=== PATIENT | female | born 1985 | race Caucasian/White ===

== ENCOUNTER 2016-11-11 11:50 | Emergency (ER) | payer MEDICAID, OTHER ==
[~2016-11-11] VITALS: Ht 152.4 cm; Wt 65.5 kg
[2016-11-11 11:51] VITALS: Ht 152.4 cm; Wt 65.5 kg
--- NOTE | 2016-11-11 12:48 | ERD ---
ER Documentation Chief Complaint Date/Time DATE: 11/11/16 TIME: 12:31 Chief Complaint Complains of SOB Hx of Asthma HPI 31-year-old female is complaining of shortness breath. Patient stated that she has cough and runny nose for last 2 weeks. Patient reports feeling of cannot catch her breath when she is coughing. States that she has green or dark brown colored sputum. She reports history of asthma. She has used albuterol inhaler 30 times since arrival to the ED today. States that that helps a little bit. Patient has history of smoking half pack a day, smoking speed, and daily heroin injections. She also reports 3 abscesses, one in her left upper arm, 2 in her each buttock. Denies fever or chills. ROS All systems reviewed and are negative except as per history of present illness. Allergies Allergies: Coded Allergies: No Known Drug Allergies (Verified Allergy, Unknown, 10/10/09) PMhx/Soc Hx Tobacco Use: Yes Physical Exam Vitals Vital Signs Date Time Temp Pulse Resp B/P Pulse Ox O2 Delivery O2 Flow Rate FiO2 11/11/16 11:51 98.2 76 20 135/81 98 Physical Exam General: Well-developed, well-nourished, conscious and coherent, in no distress. Exam is limited due to patient's noncooperation. Skin: Warm and dry. Several bruises observed. A 4 x 6 cm area of fluctuant , erythematous, tender lesion noted on the left upper arm. Patient refused to allow me to examine her abscesses on her buttocks. Head: Normocephalic without evidence of trauma Eyes: Sclera and conjunctivae normal; pupils equal, round, and reactive to light; extraocular movements are intact Ears: Canals are patent. Tympanic membranes are clear Nose/Face: Without rhinorrhea Mouth/throat: Mucous membranes are moist. Posterior pharynx clear without erythema or exudates Neck: Supple without meningismus or adenopathy. Carotids are equal. Trachea midline. No bruits or JVD Chest: Normal AP diameter. Good expansion without retractions. Nontender. Lungs are clear to auscultate bilaterally with good tidal volume. Anterior chest wall tender to palpation. Heart: Regular rate and rhythm. No murmur, rub, or gallops heard Extremities: Full range of motion. Good strength bilaterally. No clubbing, cyanosis, or edema. Peripheral pulses are intact. Sensation intact Neuro: Alert and oriented 4, GCS 15. Cranial nerves grossly intact. Motor and sensory exams nonfocal. Moves all extremities. Speech clear. Gait normal Procedures/MDM 31-year-old female with history of multi-substance abuse presented to ED complaining of shortness of breath. She does not have any signs of respiratory distress, her O2 sat is 98% on arrival, her lungs are clear to auscultation. I doubt that she has asthma exacerbation, pneumonia, pneumothorax, or PE. I suspect that her sense of shortness of breath is due to anxiety. Patient reports several abscesses secondary to heroin injections. When I advised patient that her abscess on the arm needs incision and drainage. Patient became agitated. She refused to allow me to examine her buttocks. Patient yells "you are not going to touch me. I have my rights. I know what I want. You going to give me what I want. I want a shot and antibiotics." I attempted to educate patient that antibiotics is not going to help with abscess. Patient refused to listen. "I do not want to hear you lecture me". I agreed to provide her with prescription of oral antibiotics. However, patient eloped before I was able to complete discharge instructions. Departure Diagnosis: Primary Impression: Cough Additional Impressions: Substance abuse Abscess Tobacco abuse Condition: Stable KAT ROD NP Nov 11, 2016 12:41
== END 2016-11-11 14:09 | disposition left against medical advice (07) ==
LOC: FTE 11:50
DX: R05 Cough (principal); F11.10 Opioid abuse, uncomplicated; L02.414 Cutaneous abscess of left upper limb; L02.31 Cutaneous abscess of buttock; F17.210 Nicotine dependence, cigarettes, uncomplicated; J45.909 Unspecified asthma, uncomplicated; R40.2412 Glasgow coma scale score 13-15, at arrival to emergency department
CPT/HCPCS: 99282

== ENCOUNTER 2016-12-11 03:31 | Emergency (ER) | payer OTHER ==
[~2016-12-11] VITALS: Ht 167.6 cm; Wt 67.0 kg
[2016-12-11 03:40] VITALS: Ht 167.6 cm; Wt 67.0 kg
--- NOTE | 2016-12-11 04:35 | ERA ---
ER Documentation Chief Complaint Date/Time DATE: 12/11/16 TIME: 04:32 Chief Complaint abscess left arm HPI Obese 31-year-old female with history of IV drug use presenting with chief complaint of abscess on the left upper extremity. Patient has had these abscesses before and the upper extremities. Patient does state that she has been having fever or chills lately. Denies any loss of motion, change in sensation or excessive pain outside of the area of the abscess. Denies shortness of breath or chest pain. No environmental triggers aside from IV drug use is able to be identified. Nursing notes have been reviewed. ROS All systems reviewed and are negative except as per history of present illness. Medications Home Meds Active Scripts Cephalexin* (Keflex*) 500 Mg Capsule, 500 MG PO QID for 5 Days, CAP Prov:MICHAEL GALLOWAY PA-C 12/11/16 Sulfamethoxazole/Trimethoprim* (Bactrim Ds* Tablet) 1 Each Tablet, 1 TAB PO BID , #14 TAB Prov:MICHAEL GALLOWAY PA-C 12/11/16 Acetaminophen* (Tylenol*) 325 Mg Tablet, 2 TAB PO Q8 Y for PAIN AND OR ELEVATED TEMP, #20 TAB Prov:MICHAEL GALLOWAY PA-C 12/11/16 Allergies Allergies: Coded Allergies: No Known Drug Allergies (Verified Allergy, Unknown, 10/10/09) PMhx/Soc Medical and Surgical Hx: pt denies Medical Hx, pt denies Surgical Hx History of Surgery: No Anesthesia Reaction: No Hx Neurological Disorder: No Hx Respiratory Disorders: No Hx Cardiac Disorders: No Hx Psychiatric Problems: No Hx Miscellaneous Medical Probl: No Hx Alcohol Use: No Hx Substance Use: Yes Hx Tobacco Use: Yes Smoking Status: Current every day smoker Physical Exam Vitals Vital Signs Date Time Temp Pulse Resp B/P Pulse Ox O2 Delivery O2 Flow Rate FiO2 12/11/16 03:40 97.8 115 20 130/73 100 Physical Exam Const: Healthy-appearing. Well-nourished. Well-developed. No acute distress. Skin: 15 cm erythematous area just below the deltoid patch area between the triceps and biceps on the left upper extremity. Small area of fluctuance, the rest of the area is nonfluctuant. No induration outside of the erythematous area. No warmth to touch. No discharge. Ext: No edema or palpable cord. Normal movement of all extremities grossly observed. Neur: Awake, alert and oriented x3. Neurovascularly intact bilaterally. Oral: No oral edema visualized. Mucous membranes moist and pink. Head: Normocephalic, Atraumatic. Eyes: Non-injected; No discharge. EOMI and CEZAR bilaterally. Ears: Normal External Ears, EACs clear, TM normal bilaterally without erythema. Nose: Normal external nose; no discharge, or sinus tenderness. Neck: No cervical lymphadenopathy, masses or goiter palpated. ~ No meningismus. Pulm: Good air movement in upper and lower respiratory tracts. No dyspnea, stridor, tripoding or drooling. Clear to auscultation bilaterally. Cardio: Regular rate and rhythm; No murmurs, gallops or rubs auscultated. No JVD grossly observed. No cyanosis. Capillary refill less than 2 seconds. Abd: Soft, non tender, non distended. No guarding, masses. Normal bowel sounds. MS: Normal motor strength, normal tone with gross examination. Back: No midline, flank or CVA tenderness. Psych: Normal Mood and Affect. Result Diagram: 12/11/16 0530 12/11/16 0530 Results 24 hrs Laboratory Tests Test 12/11/16 05:30 12/11/16 05:52 White Blood Count 11.710^3/ul Red Blood Count 4.2610^6/ul Hemoglobin 12.2g/dl Hematocrit 38.0% Mean Corpuscular Volume 89.2fl Mean Corpuscular Hemoglobin 28.6pg Mean Corpuscular Hemoglobin Concent 32.1g/dl Red Cell Distribution Width 15.8% Platelet Count 63167^3/UL Mean Platelet Volume 9.2fl Neutrophils % 66.8% Lymphocytes % 24.5% Monocytes % 6.4% Eosinophils % 1.5% Basophils % 0.3% Nucleated Red Blood Cells % 0.0/100WBC Neutrophils # 7.810^3/ul Lymphocytes # 2.910^3/ul Monocytes # 0.810^3/ul Eosinophils # 0.210^3/ul Basophils # 0.010^3/ul Nucleated Red Blood Cells # 0.010^3/ul Sodium Level 142mmol/L Potassium Level 3.8mmol/L Chloride Level 103mmol/L Carbon Dioxide Level 24mmol/L Anion Gap 19 Blood Urea Nitrogen 16mg/dl Creatinine 0.67mg/dl Glucose Level 87mg/dl Calcium Level 9.1mg/dl Total Bilirubin 0.1mg/dl Direct Bilirubin 0.00mg/dl Indirect Bilirubin 0.1mg/dl Aspartate Amino Transf (AST/SGOT) 36IU/L Alanine Aminotransferase (ALT/SGPT) 51IU/L Alkaline Phosphatase 105IU/L Total Protein 8.4g/dl Albumin 3.9g/dl Globulin 4.50g/dl Albumin/Globulin Ratio 0.86 Urine Color YELLOW Urine Clarity SLIGHTLY CLOUDY Urine pH 5.0 Urine Specific [place] 1.026 Urine Ketones NEGATIVEmg/dL Urine Nitrite NEGATIVEmg/dL Urine Bilirubin NEGATIVEmg/dL Urine Urobilinogen 1+mg/dL Urine Leukocyte Esterase 2+Margot/ul Urine Microscopic RBC 7/HPF Urine Microscopic WBC 49/HPF Urine Squamous Epithelial Cells FEW/HPF Urine Bacteria FEW/HPF Urine Mucus MANY/HPF Urine Hemoglobin 1+mg/dL Urine Glucose NEGATIVEmg/dL Urine Total Protein NEGATIVEmg/dl Current Medications Medications (Trade) Dose Ordered Sig/Mani Route PRN Reason Start Time Stop Time Status Last Admin Dose Admin Ketorolac Tromethamine (Toradol) 60 mg ONCE STAT IM 12/11/16 06:35 12/11/16 06:36 DC Procedures/MDM 31-year-old female with a history of IV drug use and abscesses presents with a chief complaints of another abscess on the left upper extremity. Patient gave a history of possible fever and chills, thus CBC and other basic labs were ordered. The results were as follows. CBC: Unremarkable CMP: Unremarkable Urinalysis: Positive leukocyte esterase, mucus, few white blood cells. Abscess was incised and drained. 12 mL of lidocaine with epi was used to anesthetize the area. 15 is 20 mL of purulent fluid was expressed. Culture taken and sent to the lab. I have reviewed this case with my attending Dr. Nuno who is agreed with the assessment and plan. At this time of little suspicion for necrotizing fasciitis, osteomyelitis, lymphangitis, endocarditis, or systemic involvement. I have spoke with the patient regarding their condition and future management. They have verbally responded that they understand their status and treatment plan. The patients vitals are stable, and their current condition is appropriate for discharge. The patient will be given discharge instructions with return precautions. Outpatient medications will include antibiotics to cover for abscess and urinary tract infection. Patient has a history of drug use so outpatient pain management will be with nonnarcotics. Departure Diagnosis: Primary Impression: Acute abscess Additional Impression: Urinary tract infection Qualified Code: N39.0 - Urinary tract infection with hematuria, site unspecified Condition: Stable Additional Instructions: Follow up with your PCP within the next 1-3 days for a more thorough evaluation and a possible referral to a specialist. Return the the emergency department immediately if symptoms worsen or change. If you have any questions regarding medications, ask your pharmacist or us before you leave. If any adverse reactions occur while taking your medications, discontinue the treatment and return to the emergency department immediately. Take your medications as directed, and complete the entire course of treatment. MICHAEL GALLOWAY PA-C Dec 11, 2016 04:35
[2016-12-11 05:44] LABS: BASOPHILS % 0.3 % (0.0-2.0); EOSINOPHILS # 0.2 10^3/ul (0.0-0.5); EOSINOPHILS % 1.5 % (0.0-7.0); HEMOGLOBIN 12.2 g/dl (12.0-16.0); LYMPHOCYTES # 2.9 10^3/ul (0.8-2.9); LYMPHOCYTES % 24.5 % (15.0-51.0); MEAN CORPUSCULAR HEMOGLOBIN 28.6 pg (29.0-33.0); MEAN CORPUSCULAR HGB CONC 32.1 g/dl (32.0-37.0); MEAN CORPUSCULAR VOLUME 89.2 fl (82.0-101.0); MEAN PLATELET VOLUME 9.2 fl (7.4-10.4); MONOCYTE # 0.8 10^3/ul (0.3-0.9); MONOCYTES % 6.4 % (0.0-11.0); NEUTROPHIL # 7.8 10^3/ul (1.6-7.5); NEUTROPHILS % 66.8 % (39.0-77.0); PLATELET COUNT 259 10^3/UL (140-415); RED BLOOD COUNT 4.26 10^6/ul (4.20-5.40); RED CELL DISTRIBUTION WIDTH 15.8 % (11.5-14.5); WHITE BLOOD COUNT 11.7 10^3/ul (4.8-10.8)
[2016-12-11 06:04] LABS: ALBUMIN 3.9 g/dl (3.3-4.9); ALBUMIN/GLOBULIN RATIO 0.86; BILIRUBIN,INDIRECT 0.1 mg/dl (0-1.1); BILIRUBIN,TOTAL 0.1 mg/dl (0.2-1.3); CALCIUM 9.1 mg/dl (8.4-10.2); CREATININE 0.67 mg/dl (0.44-1.00); POTASSIUM 3.8 mmol/L (3.5-5.1); TOTAL PROTEIN 8.4 g/dl (6.1-8.1)
[2016-12-11 06:18] LABS: ADD UMIC YES; UR ASCORBIC ACID 20 mg/dL (NEGATIVE); UR BACTERIA FEW /HPF (NONE SEEN); UR BILIRUBIN (Dip) NEGATIVE (NEGATIVE); UR BLOOD (Dip) 1+ mg/dL (NEGATIVE); UR CLARITY SLIGHTLY CLOUDY (CLEAR); UR COLOR YELLOW (YELLOW); UR GLUCOSE (Dip) NEGATIVE (NEGATIVE); UR KETONES (Dip) NEGATIVE (NEGATIVE); UR LEUKOCYTE ESTERASE (Dip) 2+ Leu/ul (NEGATIVE); UR MUCUS MANY /HPF (NONE SEEN); UR NITRITE (Dip) NEGATIVE (NEGATIVE); UR RBC 7 /HPF (0-5); UR SPECIFIC GRAVITY (Dip) 1.026 (1.003-1.030); UR SQUAMOUS EPITHELIAL CELL FEW /HPF (FEW); UR TOTAL PROTEIN (Dip) NEGATIVE (NEGATIVE); UR UROBILINOGEN (Dip) 1+ mg/dL (NEGATIVE)
[2016-12-11] MEDS ORDERED: ACET325T33 PO (06:34)
[2016-12-11] MEDS ORDERED: CEPH-443 PO (06:35)
[2016-12-11] MEDS ORDERED: KETOROLAC 60 MG INJ IM STA (06:35)
[2016-12-11] MEDS ORDERED: SULF1TAB31 PO (06:35)
== END 2016-12-11 06:42 | disposition home or self-care (01) ==
LOC: FTE 03:31
DX: L02.414 Cutaneous abscess of left upper limb (principal); N39.0 Urinary tract infection, site not specified; F17.210 Nicotine dependence, cigarettes, uncomplicated
CPT/HCPCS: 10060; 80053; 81001; 85025; Z7502

== ENCOUNTER 2017-02-04 05:53 | Emergency (ER) | payer OTHER ==
[~2017-02-04] VITALS: Ht 162.6 cm; Wt 65.0 kg
[~2017-02-04 05:53] MED LIST: ACET325T33 PO; CEPH-443 PO; SULF1TAB31 PO
[2017-02-04 05:56] VITALS: Ht 162.6 cm; Wt 65.0 kg
--- NOTE | 2017-02-04 06:54 | ERD ---
ER Documentation Chief Complaint Date/Time DATE: 02/04/17 TIME: 06:53 Chief Complaint foreign body"tampoon"left in cervix, abscess left arm and right thigh HPI Patient is a 31-year-old female with a history of IV drug use who presents emergency department for multiple concerns including foreign body and abscesses. Patient states she believes that she has a tampon stuck in her for 1 week. Patient denies any fevers, chills, nausea, vomiting, rashes or loss of consciousness. Patient reports odor from her vaginal area. Patient denies any vaginal bleeding. Patient reports increased white vaginal discharge. Patient denies any sexual activity since the time she believes her tampon has been stuck in her. Patient also reports abscess to her left arm and right thigh. Patient states "I do not want them drained". Patient states "I just want a shot and antibiotics to go." Patient does not want an incision and drainage at this time. Patient denies any headache, back pain, chest pain, shortness breath , abdominal pain. Patient admits to bloating. Patient does admit to IV drug use to the affected areas. ROS All systems reviewed and are negative except as per history of present illness. Medications Home Meds Active Scripts Ibuprofen* (Motrin*) 600 Mg Tab, 600 MG PO Q6, #20 TAB Prov:NEO JAMES PA-C 02/04/17 Clindamycin Hcl* (Clindamycin Hcl*) 300 Mg Capsule, 300 MG PO TID for 10 Days, CAP Prov:NEO JAMES PA-C 02/04/17 Cephalexin* (Keflex*) 500 Mg Capsule, 500 MG PO QID for 5 Days, CAP Prov:MICHAEL GALLOWAY PA-C 12/11/16 Sulfamethoxazole/Trimethoprim* (Bactrim Ds* Tablet) 1 Each Tablet, 1 TAB PO BID , #14 TAB Prov:MICHAEL GALLOWAY PA-C 12/11/16 Acetaminophen* (Tylenol*) 325 Mg Tablet, 2 TAB PO Q8 Y for PAIN AND OR ELEVATED TEMP, #20 TAB Prov:MICHAEL GALLOWAY PA-C 12/11/16 Allergies Allergies: Coded Allergies: No Known Drug Allergies (Verified Allergy, Unknown, 10/10/09) PMhx/Soc History of Surgery: No Anesthesia Reaction: No Hx Neurological Disorder: No Hx Respiratory Disorders: No Hx Cardiac Disorders: No Hx Psychiatric Problems: No Hx Miscellaneous Medical Probl: No Hx Alcohol Use: No Hx Substance Use: Yes Hx Tobacco Use: Yes FmHx Family History: No diabetes Physical Exam Vitals Physical Exam GENERAL: Well-developed, well-nourished female. Appears in no acute distress. HEAD: Normocephalic, atraumatic. EYES: Pupils are equally reactive bilaterally. EOMs grossly intact. No conjunctival erythema. ENT: Moist mucous membranes. No uvula deviation. No kissing tonsils. NECK: Supple. No meningismus. Normal range of motion of the neck. LUNG: Clear to auscultation bilaterally. No rhonchi, wheezing, rales or coarse breath sounds. HEART: Regular rate and rhythm. No murmurs, rubs or gallops. 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 Normal external female genitalia. Normal vaginal mucosal without lesions. Cervix visualized, non erythematous, copious white discharge noted. Discharge swabbed off of cervix. No tampon visualized upon numerous inspections. No cervical motion tenderness. No palpable objects noted with bimanual exam. EXTREMITIES: Equal pulses bilaterally. No peripheral clubbing, cyanosis or edema. No unilateral leg swelling. NEUROLOGIC: Alert and oriented. Moving all four extremities without any difficulty. Normal speech. Steady gait. SKIN: No rashes. No desquamation of the soles or palms. Negative Nikolsky sign. No rashes noted on the patient's body except for numerous indurated abscesses in the left shoulder and right buttocks. No active discharge or bleeding. Results 24 hrs Laboratory Tests Test 02/04/17 08:28 Chlamydia trachomatis RNA (TMA) NOT DETECTED Chlamydia/GC Comment SEE NOTE Neisseria gonorrhoeae RNA (TMA) NOT DETECTED Current Medications Medications (Trade) Dose Ordered Sig/Mani Route PRN Reason Start Time Stop Time Status Last Admin Dose Admin Ceftriaxone Sodium (Rocephin) 250 mg ONCE ONCE IM 02/04/17 08:30 02/04/17 08:31 DC 02/04/17 08:22 Azithromycin (Zithromax) 1,000 mg ONCE ONCE PO 02/04/17 08:30 10 08:31 DC 02/04/17 08:22 Procedures/MDM ED COURSE: The patient was stable throughout ED course. I kept the patient and/or family informed of laboratory and diagnostic imaging results throughout the ED course. MEDICATIONS GIVEN: Rocephin IM, Azithromycin Patient tolerated medication well with no adverse reactions. Patient reported improvement in pain. MEDICAL DECISION MAKING: Patient is a 31-year-old female with hx of IVDA who presents to the emergency department for concerns of possible foreign body tampon and numerous abscesses throughout her body. Patient does admit to IV drug use. Patient denies any fevers or chills. Patient denies any rashes. Vital signs were reviewed. Patient is afebrile. Patient was not hypoxic. Patient was hemodynamically stable. Patient was noted to have numerous abscesses on her body. Patient refused incision and drainage of her numerous abscesses. Patient stated she wanted to receive an IM injection and p.o. antibiotics. I advised the patient that she should return in 2 days for wound recheck. Patient advised on not to self drain affected sites. In addition, no tampon was found upon numerous visualizations. I offered the patient an ultrasound exam which she refused. In addition, patient was offered a repeat examination by another PA however she declined that as well. Patient is unsure if the tampon is present. Patient had white discharge in vaginal vault and cervix. Patient did verbalize concerns for STDs. Patient was empirically treated for gonorrhea and chlamydia. Urine STD testing pending. Urine was negative. I had a long discussion about abstaining from IV drugs. Patient advised on the importance of sterile technique and the importance of not picking/self drainage lesions. Patient was to return in 2 days for wound recheck. Patient given strict return precautions for new or worsening symptoms. Discussed case with Dr. Elder, supervising physician, who states that patient can be managed on patient advised basi and she would reutn in 2 days. At this time, patient's presentation is most consistent with numerous abscesses , concerns for STDs and concern for foreign body. Low suspicion for retained foreign body, toxic shock syndrome, sepsis, insect bites. PRESCRIPTION: Clindamycin, Ibuprofen DISCHARGE: At this time, patient is stable for discharge and outpatient management. Patient advised to return to the emergency department 2 days for wound recheck. Patient advised to consider incision and drainage at this time. I have instructed the patient to follow-up with his/her primary care physician in 1-2 days. I have discussed with the patient the possibility of needing to see a specialist for further workup and imaging studies if symptoms persist. I have instructed the patient to promptly return to the ER for any new or worsening symptoms including increased pain, fever, nausea, vomiting, weakness or LOC. The patient and/or family expressed understanding of and agreement with this plan. All questions were answered. Home care instructions were provided. Departure Diagnosis: Primary Impression: Multiple complaints Additional Impressions: Abscess Concern about STD in female without diagnosis Condition: Stable Patient Instructions: For Girls: About Sanitary Pads and Tampons, Abscess, Antiobiotic Treatment Only Referrals: [facility] YOU HAVE RECEIVED A MEDICAL SCREENING EXAM AND THE RESULTS INDICATE THAT YOU DO NOT HAVE A CONDITION THAT REQUIRES URGENT TREATMENT IN THE EMERGENCY DEPARTMENT. FURTHER EVALUATION AND TREATMENT OF YOUR CONDITION CAN WAIT UNTIL YOU ARE SEEN IN YOUR DOCTORS OFFICE WITHIN THE NEXT 1-2 DAYS. IT IS YOUR RESPONSIBILITY TO MAKE AN APPOINTMENT FOR FOLOW-UP CARE. IF YOU HAVE A PRIMARY DOCTOR --you should call your primary doctor and schedule an appointment IF YOU DO NOT HAVE A PRIMARY DOCTOR YOU CAN CALL OUR PHYSICIAN REFERRAL HOTLINE AT IF YOU CAN NOT AFFORD TO SEE A PHYSICIAN YOU CAN CHOSE FROM THE FOLLOWING [facility] [address] [facility]. [facility] [address] [facility] [place] [address] [facility]. [facility] [address] [facility]. [facility] [address] [facility]. [facility]. [address] [facility]. [facility] YOU HAVE RECEIVED A MEDICAL SCREENING EXAM AND THE RESULTS INDICATE THAT YOU DO NOT HAVE A CONDITION THAT REQUIRES URGENT TREATMENT IN THE EMERGENCY DEPARTMENT. FURTHER EVALUATION AND TREATMENT OF YOUR CONDITION CAN WAIT UNTIL YOU ARE SEEN IN YOUR DOCTORS OFFICE WITHIN THE NEXT 1-2 DAYS. IT IS YOUR RESPONSIBILITY TO MAKE AN APPOINTMENT FOR FOLOW-UP CARE. IF YOU HAVE A PRIMARY DOCTOR --you should call your primary doctor and schedule and appointment IF YOU DO NOT HAVE A PRIMARY DOCTOR YOU CAN CALL OUR PHYSICIAN REFERRAL HOTLINE AT . IF YOU CAN NOT AFFORD TO SEE A PHYSICIAN YOU CAN CHOSE FROM THE FOLLOWING [facility] INSTITUTIONS: [facility] [address] [place] [address] [facility] [address] [place] [address] [facility] + [facility] [address] [place] [address] [employer] [address] [facility] [address] [place] [address]ABUSLEME EMERSON [address] [place] [address] [address] VAN [place]ON [address] [place] [address] [address] PHELPS [facility] [address] [facility], [address], [facility] [address] [address] [address] [place] [address] [facility] [address] [place] [address] [phone] [facility] [address] - [address]LA GALVEZ [address] [facility]. [address], [facility] [address] [address] [address] [facility]. [address], [facility] [address] [address] [address] [place], [place] [id number] Additional Instructions: Return in 2 days for wound recheck. Consider incision and drainage at that time. Start antibiotics FUNMILAYO. Return to the emergency department for any new or worsening symptoms including but not limited to fevers, chills, nausea, vomiting , muscle aches, rash or loss of consciousness. Call your primary care doctor TOMORROW for an appointment during the next 1-2 days.See the doctor sooner or return here if your condition worsens before your appointment time. NEO JAMES PA-C Feb 04, 2017 06:54
[2017-02-04] MEDS ORDERED: CLIN-73 PO (08:29)
[2017-02-04] MEDS ORDERED: IBUP-1542 PO (08:29)
[2017-02-04] MEDS ORDERED: AZITHROMYCIN 250 MG TAB PO ONE (08:30)
[2017-02-04] MEDS ORDERED: CEFTRIAXONE 250 MG INJ IM ONE (08:30)
== END 2017-02-04 08:53 | disposition home or self-care (01) ==
LOC: FTE 05:53
DX: T19.2XXA Foreign body in vulva and vagina, initial encounter (principal); N76.4 Abscess of vulva; X58.XXXA Exposure to other specified factors, initial encounter; Y92.9 Unspecified place or not applicable; Z20.2 Contact with and (suspected) exposure to infections with a predominantly sexual mode of transmission; Z87.891 Personal history of nicotine dependence
CPT/HCPCS: 87591; 96372; J0696; Z7502; Z7610